=== PATIENT | male | born 1970 | race Caucasian/White ===

== ENCOUNTER 2018-11-10 17:37 | Observation (INO) ==
--- NOTE | 2018-11-10 18:22 | Emergency Department Note ---
Disposition Clinical Impression: Acute kidney injury, Dehydration Disposition: Admitted As Inpatient Condition: Fair Referrals: NONE,PCP [Primary Care Provider] - Forms: ED Satisfaction Letter, Work/School Release Time of Disposition: 19:16 General Adult HPI - General Chief complaint: ED General Medical Stated complaint: abnormal lab results Time Seen by Provider: 11/10/18 17:54 Source: patient Mode of arrival: private vehicle Limitations: no limitations Nursing Notes Reviewed: Yes Vital Signs Reviewed: Yes - History of Present Illness HPI Narrative: Patient was sent to the emergency department after having some routine lab work done by his PCP. That work was done yesterday and he was called today with abnormal results and told to be evaluated in the ER. Patient says that he was told his white count was abnormal and that his kidneys were close to failing. Patient had been seen for earaches and head congestion, however denies having been sick otherwise in the past week. He has had no nausea or vomiting or diarrhea. He says is been eating and drinking okay. He denies fevers or chills. Pt Subjective Complaint: Abnormal blood work Onset (ago): hour(s) Pain Scale: 0 - Related Data Home Medications Medication Instructions Recorded Confirmed Lisinopril [Zestril] 20 mg PO DAILY 01/29/17 11/10/18 Quetiapine Fumarate [Seroquel Xr] 400 mg PO HS 01/29/17 11/10/18 Amoxicillin/Clavulanate [Augmentin] 500 mg PO 11/10/18 Capmist Dm Tablet 1 PO DAILY 11/10/18 Previous Rx's Medication Instructions Recorded HYDROcodone/Acet 5/325 mg [[place] 1 tab PO Q6H PRN #14 tab 01/29/17 5-325 mg] Allergies Allergy/AdvReac Type Severity Reaction Status Date / Time Sulfa (Sulfonamide Allergy Rash Verified 01/29/17 15:39 Antibiotics) All systems ED: reviewed and negative except as stated. Constitutional: Denies: fever, chills ENT ED: Reports: ear pain, congestion. Denies: throat pain Cardiovascular: Denies: chest pain, palpitations Respiratory: Denies: cough, dyspnea, wheezes Gastrointestinal: Denies: abdominal pain, nausea, vomiting, diarrhea Genitourinary: Denies: urgency, dysuria, frequency, hematuria Musculoskeletal: Denies: back pain, neck pain Integumentary: Denies: rash Neurological: Denies: headache, weakness, numbness Past Medical History - Past Medical History Attestation: Yes The following information was validated with the patient. Source: patient, old records reviewed, nursing notes reviewed Medical history: Reports: hypertension Surgical history: Reports: non-contributory Psychiatric history: Reports: anxiety, depression - Social History Smoking Status: Current every day smoker Smokeless Tobacco Status: No Alcohol use: Reports: heavy Drug use: Reports: none Physical Exam - General Limitations: no limitations General appearance: alert, in no apparent distress - Head Head exam: normocephalic, normal inspection, other (Patient has a recent cut to the forehead that healing.) - Eye Eye exam: Present: normal appearance, PERRL, EOMI. Absent: scleral icterus, conjunctival injection - ENT ENT exam: normal exam, normal oropharynx, mucous membranes moist, TM's normal bilaterally, normal external ear exam - Neck Neck exam: Present: normal inspection, full ROM, trachea midline. Absent: meningismus - Chest Chest inspection: Present: normal inspection, symmetric chest wall rise. Abs ent: tenderness - Respiratory Respiratory exam: Present: normal lung sounds bilaterally. Absent: respiratory distress, wheezes - Cardiovascular Cardiovascular exam: Present: normal rhythm, tachycardia, normal heart sounds - Abdominal Exam Abdominal exam: Present: soft, Non-Tender, normal bowel sounds - Extremities Exam Extremities exam: Present: normal inspection. Absent: pedal edema - Neurological Exam Neurological exam: Present: alert, oriented X3 - Psychiatric Psychiatric exam: Present: normal affect, normal mood - Skin Skin exam: Present: warm, dry. Absent: rash Course Course Narrative: Patient was sent to the emergency department for abnormal labs. He does not really describe any significant illness. He has had some upper respiratory infection symptoms but he insists that the labs were just done as part of a normal workup. I got the lab results from [facility] and it shows a white count of 18,000 and a BUN of 58 with a creatinine of 3.3. I know what the patient's b aseline creatinine is but coupling this with tachycardia and hypotension that he is showing makes me think that this is acute and consistent with dehydration. I am going to recheck labs and add a few extra labs. I am going to give him some fluids. Disposition will be based on diagnostic results and reevaluation. - Reevaluation(s) Reevaluation #1: White count is only 12,000. Patient does not describe any blatant severe infectious disease symptoms. However we do see a BUN almost 60 and a creatinine of almost 4. I do not know what his baseline be a creatinine are but it seems consistent with acute kidney injury secondary to dehydration. He needs to be admitted to the hospital to make sure this corrects with hydration. I spoke with Dr. Rachel, the hospitalist and he accepted the patient for admission. Time: 19:15 Vital Signs Temperature 97.8 F 11/10/18 17:41 Pulse Rate 99 11/10/18 17:41 Respiratory Rate 18 11/10/18 17:41 Blood Pressure 89/55 11/10/18 17:41 O2 Sat by Pulse Oximetry 98 11/10/18 17:41 Temperature 97.8 F 11/10/18 18:11 Pulse Rate 89 11/10/18 18:44 Respiratory Rate 16 11/10/18 18:44 Blood Pressure 88/68 11/10/18 18:44 O2 Sat by Pulse Oximetry 100 11/10/18 18:44 Oxygen Delivery Oxygen Delivery Room Air Medical Decision Making - Lab Data Lab results reviewed: Yes I reviewed the patient's lab results. Result diagrams: 11/10/18 18:32 11/10/18 18:32 Lab Results 11/10/18 11/10/18 11/10/18 Range/Units 18:32 18:32 18:32 WBC 12.9 H (4.3-11.1) K/mcL RBC 2.86 L (4.19-5.50) M/mcL Hgb 10.9 L (12.9-16.9) g/dL Hct 30.0 L (37.5-50.1) % MCV 104.9 H (83.0-100.0) fL MCH 38.1 H (28.0-33.3) pg MCHC 36.3 H (31.6-35.5) g/dL RDW 13.2 (11.5-14.5) % Plt Count 134 L (140-400) K/mcL MPV 10.2 (9.4-12.4) fL Immature Gran % 3.3 (0-4) % Seg Neutrophils % 70.2 % Lymphocytes % 14.9 % Monocytes % 9.6 % Eosinophils % 1.6 % Basophils % 0.4 % Neutrophils # 9.1 H (1.6-8.9) K/mcL Lymphocytes # 1.9 (0.6-4.6) K/mcL Monocytes # 1.2 (0.0-1.3) K/mcL Eosinophils # 0.2 (0.0-0.6) K/mcL Basophils # 0.1 (0.0-0.2) K/mcL Sodium 132 L (136-145) mEq/L Potassium 3.7 (3.5-5.1) mEq/L Chloride 96 L (98-107) mEq/L Carbon Dioxide 17 L (23-29) mEq/L BUN 58 H (6-20) mg/dL Creatinine 3.99 H (0.70-1.30) mg/dL Est GFR ( Amer) 19 L (> 60) Est GFR (Non-Af Amer) 16 L (> 60) BUN/Creatinine Ratio 15 (6-26) Glucose 129 H (70-105) mg/dL Calculated Osmolality 292 (280-300) Lactic Acid 1.3 (0.5-2.2) mmol/L Calcium 9.2 (8.6-10.3) mg/dL Total Bilirubin 0.5 (0.3-1.0) mg/dL Direct Bilirubin 0.2 (0.0-0.2) mg/dL Indirect Bilirubin 0.3 (0.0-1.2) mg/dL AST 36 (13-39) Units/L ALT 21 (7-52) Units/L Alkaline Phosphatase 87 (34-104) Units/L Troponin I < 0.03 (< 0.04) ng/mL Serum Total Protein 7.5 (6.4-8.9) g/dL Albumin 4.2 (3.5-5.7) g/dL Globulin 3.3 (2.4-3.5) g/dL Albumin/Globulin Ratio 1.3 (1.1-2.2) Ethyl Alcohol < 10 (Less than 10) mg/dL - Radiology Data Radiology results reviewed: Yes I reviewed the patient's radiology results.
[2018-11-10] MEDS: 0.9 % Sodium Chloride 1,000 ML IVC SCH ×3 (18:36→21:04)
[2018-11-10 18:39] LABS: Basophils # 0.1 K/mcL (0.0-0.2); Basophils % 0.4 %; Eosinophils # 0.2 K/mcL (0.0-0.6); Eosinophils % 1.6 %; Hemoglobin 10.9 g/dL (12.9-16.9); Immature Granulocytes % 3.3 % (0-4); Lymphocytes # 1.9 K/mcL (0.6-4.6); Lymphocytes % 14.9 %; Mean Corpuscular HGB Conc 36.3 g/dL (31.6-35.5); Mean Corpuscular Hemoglobin 38.1 pg (28.0-33.3); Mean Corpuscular Volume 104.9 fL (83.0-100.0); Mean Platelet Volume 10.2 fL (9.4-12.4); Monocytes # 1.2 K/mcL (0.0-1.3); Monocytes % 9.6 %; Platelet Count 134 K/mcL (140-400); Red Blood Count 2.86 M/mcL (4.19-5.50); Red Cell Distribution Width 13.2 % (11.5-14.5); Segmented Neutrophils % 70.2 %
[2018-11-10 18:40] LABS: Neutrophils # 9.1 K/mcL (1.6-8.9)
[2018-11-10 18:58] LABS: Alanine Aminotransferase 21 Units/L (7-52); Albumin 4.2 g/dL (3.5-5.7); Albumin/Globulin Ratio 1.3 (1.1-2.2); Alkaline Phosphatase 87 Units/L (34-104); Aspartate Amino Transferase 36 Units/L (13-39); BUN/Creatinine Ratio 15 (6-26); Bilirubin,Direct 0.2 mg/dL (0.0-0.2); Bilirubin,Indirect 0.3 mg/dL (0.0-1.2); Bilirubin,Total 0.5 mg/dL (0.3-1.0); Blood Urea Nitrogen 58 mg/dL (6-20); Calcium 9.2 mg/dL (8.6-10.3); Carbon Dioxide 17 mEq/L (23-29); Chloride 96 mEq/L (98-107); Ethanol < 10 mg/dL (Less than 10); Globulin 3.3 g/dL (2.4-3.5); Glucose 129 mg/dL (70-105); Osmolality,Calculated 292 (280-300); Potassium 3.7 mEq/L (3.5-5.1); Sodium 132 mEq/L (136-145); Total Protein 7.5 g/dL (6.4-8.9); Troponin I < 0.03 ng/mL (< 0.04); eGFR For Non-African Americans 16 (> 60)
[2018-11-10] MEDS ORDERED: 0.9 % Sodium Chloride 1,000 ML ONE (19:30)
[2018-11-10 20:17] LABS: Bilirubin,Urine Negative (Negative); Blood,Urine Trace-lysed (Negative); Clarity,Urine Clear (Clear); Color,Urine Yellow (Yellow); Glucose,Urine (UA) 100 mg/dL (Normal); Ketones,Urine Negative (Negative); Leukocyte Esterase,Urine Trace (Negative); Nitrite,Urine Negative (Negative); PH,Urine 5.5 pH Units (5.0-8.0); Protein,Urine 30 mg/dL (Neg-Trace); Urobilinogen,Urine Normal (Normal)
[2018-11-10 20:28] LABS: Amphetamine Screen,Urine Negative ng/mL (Cutoff=1000); Barbiturate Screen,Urine Negative ng/mL (Cutoff=200); Benzodiazepines Screen,Urine Negative ng/mL (Cutoff=200); Cannabinoid Screen,Urine Negative ng/mL (Cutoff = 50); Cocaine Screen,Urine Negative ng/mL (Cutoff= 300); Opiate Screen,Urine Negative ng/mL (Cutoff=300); Phencyclidine Screen,Urine Negative ng/mL (Cutoff=25)
[2018-11-10 20:31] LABS: RBC,Urine 0-3 per hpf (0-3); Squamous Epithelial Cell,Urine Few per lpf (None-Few); WBC,Urine 0-3 per hpf (0-3)
[2018-11-10 20:32] LABS: Bacteria,Urine Few per hpf (None-Few); Granular Casts,Urine Few per lpf (None Seen); Hyaline Casts,Urine Few per lpf (None-Few)
[2018-11-10] MEDS ORDERED: 0.9 % Sodium Chloride 1,000 ML IV ONE (20:45)
[2018-11-10] MEDS ORDERED: Naloxone 0.4 MG/ML INJ IVP PRN (20:45)
[2018-11-10] MEDS ORDERED: Ondansetron 4 MG/2 ML VIAL IVP PRN (20:45)
[2018-11-10] MEDS: Amoxicillin 250 MG CHEWABLE TABLET PO SCH (21:42)
[2018-11-11] MEDS: 0.9 % Sodium Chloride 1,000 ML IVC SCH (03:44)
[2018-11-11 07:15] LABS: Hematocrit 28.7 % (37.5-50.1); Hemoglobin 10.2 g/dL (12.9-16.9); Mean Corpuscular HGB Conc 35.5 g/dL (31.6-35.5); Mean Corpuscular Hemoglobin 37.5 pg (28.0-33.3); Mean Corpuscular Volume 105.5 fL (83.0-100.0); Mean Platelet Volume 10.2 fL (9.4-12.4); Platelet Count 127 K/mcL (140-400); Red Blood Count 2.72 M/mcL (4.19-5.50); Red Cell Distribution Width 13.2 % (11.5-14.5)
[2018-11-11 07:31] LABS: Calcium 8.2 mg/dL (8.6-10.3); Potassium 3.4 mEq/L (3.5-5.1)
[2018-11-11] MEDS: Amoxicillin 250 MG CHEWABLE TABLET PO SCH ×2 (09:38→20:34)
--- NOTE | 2018-11-11 11:29 | Internal Med History&Physical ---
Date of Encounter: 11/11/18 Time of Encounter: 10:55 Assessment and Plan (1) Acute kidney injury Current visit: Yes Status: Acute Duration unknown since labs have not been checked in previous 5 years. IV fluids have been started. BUN and creatinine have decreased to 52 and 2.70 respectively today. Recheck labs in a.m. (2) Leukocytosis Current visit: Yes Status: Acute WBC normal today at 10.2 with no left shift. Etiology uncertain. Chest x-ray and urinalysis unremarkable. Will continue amoxicillin at this time and add lactobacillus. Qualifiers: Leukocytosis type: unspecified Qualified Code(s): D72.829 - Elevated white blood cell count, unspecified (3) Macrocytic anemia Current visit: Yes Status: Acute TSH and anemia testing will be done in a.m. He states he drinks 3-4 times per week with 4-5 drinks each episode. (4) Hypocalcemia Current visit: Yes Status: Acute Calcium level 8.2 with albumin normal at 4.2. Recheck in a.m. (5) Hypokalemia Current visit: Yes Status: Acute Potassium has decreased to 3.4. Supplement potassium will be given an labs rechecked in a.m. Internal Medicine - H&P: HPI Chief complaint: Lab abnormalities Admitted From: Emergency Dept Plans for Post Hospital Care: Home History of present illness: Mr. Mcclure is a 48 year old male who was told to come to emergency room after receiving a call from his PCP office reporting he has significant lab abnormali ties on blood work drawn 11/09/2018. He had leukocytosis, anemia, and renal failure reported. He was evaluated in emergency room and lab abnormalities were confirmed. He was admitted to [facility] floor for ongoing care needs. He reports he has not had blood work done for approximately 5 years. He denies known renal disease. He had kidney stones remotely without recurrence. He denies other kidney bladder or prostate disorders. He has had URI symptoms onset 11/06/2018 and received amoxicillin his PCP office 11/09/2018 for hoarseness and cough productive of yellow sputum. He denies vomiting or diarrhea but does report feeling fevered occasionally. Past Med Surg Social Fam HX - Past Medical History Medical history: hypertension Psychiatric history: anxiety, depression - Past Surgical History Surgical History: non-contributory, orthopedic, other Additional surgical history: Left Ankle - Social History Smoking Status: Current every day smoker Packs per day: 1-2 Smokeless Tobacco Status: No Alcohol use: heavy Drug use: none - Family History Mother Adopted: Yes Internal Medicine - H&P: Meds HYDROcodone/Acet 5/325 mg [[place] 5-325 mg] 1 tab PO Q6H PRN #14 tab 01/29/17 [Rx] Lisinopril [Zestril] 20 mg PO DAILY 01/29/17 [History] Quetiapine Fumarate [Seroquel Xr] 400 mg PO HS 01/29/17 [History] Amoxicillin/Clavulanate [Augmentin] 500 mg PO 11/10/18 [History] Capmist Dm Tablet 1 PO DAILY 11/10/18 [History] Allergy/AdvReac Type Severity Reaction Status Date / Time Sulfa (Sulfonamide Allergy Rash Verified 01/29/17 15:39 Antibiotics) All Systems PM: A 10-system review of systems was performed and is negative for pertinent findings except as documented above in the HPI. Review of systems: Gen.: He states his weight has decreased approximately 10 pounds in the past month, unintentionally Cardiovascular: He has history of hypertension but denies AL heart failure angina DVT or pulmonary embolus. He reports he has been taking lisinopril daily for approximately 2-3 weeks. Prior to that he was using it only sporadically in the 2 years since it was prescribed. Respiratory: He has smoked since age 14 up to 2 packs per day. He has not had PFTs and does not use home oxygen. He denies testing for DARNELL. GI: He denies disorders of his liver gallbladder or exocrine pancreas : As per history of present illness Neurologic: He denies large's tradition strokes or seizures. Endocrine: He denies diabetes thyroid disease or hyperlipidemia Hematology/oncology: He was unaware he had anemia on labs this week. He denies history of anemia or internal malignancies. Psychiatric: He has been diagnosed with depression and anxiety. He denies other mental health diagnosis. [place] skeletal: He had left ankle fracture with plate and screw repair and tendon repair several years ago. He denies arthritis gout or other bone joint or muscle disorders. - Constitutional Vitals: Temp Pulse Resp BP Pulse Ox 98.4 F 80 16 106/70 94 11/11/18 06:00 11/11/18 06:00 11/11/18 06:00 11/11/18 06:00 11/11/18 06:00 Exam: Gen.: He is a well-developed well-nourished male lying in bed who appears in no severe distress at present time HEENT: Head is atraumatic and normocephalic. Eyes: EOMI. There is no scleral icterus. Mouth: Mucosa is moist. Neck: Supple and nontender. There is no thyromegaly or adenopathy noted. Heart: Regular without murmurs gallops or ectopics Lungs: No wheezes or crackles are heard. Abdomen: Soft and nontender. No masses or guarding are noted. Extremities: There is no cyanosis edema or clubbing noted. Dorsalis pedis and posttibial pulses are 1-2 over 2 bilaterally. Neurologic: Mental status: He is talkative and a good historian. Cranial nerves: Smile is symmetric. Forehead wrinkles bilaterally. Tongue protrudes midline. EOMI. Motor: There is no pronator drift. Cerebellar: Finger to nose is intact bilaterally. Skin: Warm and dry Internal Med - H&P Results - Labs CBC & Chem 7: 11/11/18 06:53 11/11/18 06:53 Labs: Short CBC 11/10/18 11/11/18 Range/Units 18:32 06:53 WBC 12.9 H 10.2 (4.3-11.1) K/mcL Hgb 10.9 L 10.2 L (12.9-16.9) g/dL Hct 30.0 L 28.7 L (37.5-50.1) % Plt Count 134 L 127 L (140-400) K/mcL Neutrophils # 9.1 H (1.6-8.9) K/mcL BMP 11/10/18 11/11/18 18:32 06:53 Sodium 132 L 138 Potassium 3.7 3.4 L Chloride 96 L 105 Carbon Dioxide 17 L 20 L BUN 58 H 52 H Creatinine 3.99 H 2.70 H Glucose 129 H 126 H Calcium 9.2 8.2 L Cardiac Enzymes 11/10/18 Range/Units 18:32 Troponin I < 0.03 (< 0.04) ng/mL Liver Function 11/10/18 Range/Units 18:32 Total Bilirubin 0.5 (0.3-1.0) mg/dL Direct Bilirubin 0.2 (0.0-0.2) mg/dL AST 36 (13-39) Units/L ALT 21 (7-52) Units/L Alkaline Phosphatase 87 (34-104) Units/L Albumin 4.2 (3.5-5.7) g/dL Urine 11/10/18 Range/Units 20:13 Urine Color Yellow (Yellow) Urine Clarity Clear (Clear) Urine pH 5.5 (5.0-8.0) pH Units Ur Specific [place] 1.010 (1.010-1.025) Urine Protein 30 H (Neg-Trace) mg/dL Urine Glucose (UA) 100 H (Normal) mg/dL - Impressions ITS Impressions Chest X-Ray 11/10/18 18:14 IMPRESSION: Left basilar atelectasis. D/ / Carlyn Davis MD / Carlyn Davis MD Interpreting Provider: Carlyn Davis MD
[2018-11-11] MEDS: Nicotine 21 MG PATCH.TD24 TD SCH (13:06)
[2018-11-11] MEDS: 0.45 % Sodium Chloride w/KCl 20 MEQ/1,000 ML MLS IVC SCH ×2 (13:06→23:21)
[2018-11-11] MEDS: Lactobacillus 1 EACH CAP.SPRINK PO SCH (20:34)
[2018-11-12 06:42] LABS: Basophils # 0.1 K/mcL (0.0-0.2); Basophils % 0.7 %; Eosinophils # 0.4 K/mcL (0.0-0.6); Hematocrit 29.8 % (37.5-50.1); Hemoglobin 10.5 g/dL (12.9-16.9); Immature Granulocytes % 4.3 % (0-4); Lymphocytes # 3.1 K/mcL (0.6-4.6); Mean Corpuscular HGB Conc 35.2 g/dL (31.6-35.5); Mean Corpuscular Hemoglobin 37.2 pg (28.0-33.3); Mean Corpuscular Volume 105.7 fL (83.0-100.0); Monocytes # 1.8 K/mcL (0.0-1.3); Monocytes % 15.4 %; Neutrophils # 5.7 K/mcL (1.6-8.9); Platelet Count 141 K/mcL (140-400); Red Blood Count 2.82 M/mcL (4.19-5.50); Red Cell Distribution Width 13.2 % (11.5-14.5); Segmented Neutrophils % 49.6 %
[2018-11-12 06:59] LABS: Magnesium 1.2 mg/dL (1.6-2.6)
[2018-11-12 07:03] LABS: Albumin 3.9 g/dL (3.5-5.7); Albumin/Globulin Ratio 1.3 (1.1-2.2); Bilirubin,Total 0.4 mg/dL (0.3-1.0); Calcium 8.4 mg/dL (8.6-10.3); Potassium 3.6 mEq/L (3.5-5.1); Total Protein 6.9 g/dL (6.4-8.9)
[2018-11-12 07:04] VITALS: BP 127/89
[2018-11-12] MEDS: Lactobacillus 1 EACH CAP.SPRINK PO SCH (07:57)
[2018-11-12] MEDS: Nicotine 21 MG PATCH.TD24 TD SCH (07:57)
[2018-11-12] MEDS: Amoxicillin 250 MG CHEWABLE TABLET PO SCH (07:57)
[2018-11-12 08:48] LABS: Thyroid Stimulating Hormone 3.163 mcIU/mL (0.340-5.600)
[2018-11-12 10:14] LABS: Folate 6.5 ng/mL (3.0-16.0)
--- NOTE | 2018-11-12 11:03 | Discharge Summary ---
Orders not resulted at time of discharge: Pending orders 11/10/18 18:32 Culture,Blood [BC] Stat 11/10/18 20:13 Culture,Urine [RM] Stat Date of Encounter: 11/12/18 Time of Encounter: 10:50 - Discharge Diagnosis (1) Acute kidney injury Priority: Primary Status: Acute (2) Leukocytosis Priority: Secondary Status: Acute Qualifiers: Leukocytosis type: unspecified Qualified Code(s): D72.829 - Elevated white blood cell count, unspecified (3) Macrocytic anemia Priority: Secondary Status: Acute (4) Hypocalcemia Priority: Secondary Status: Acute (5) Hypokalemia Priority: Secondary Status: Resolved (6) Hypomagnesemia Priority: Secondary Status: Acute Hospital course: Mr. Mcclure is a 48 year old male who was told to come to emergency room after receiving a call from his PCP office reporting he has significant lab abnormalities on blood work drawn 11/09/2018. He had leukocytosis, anemia, and renal failure reported. He was evaluated in emergency room and lab abnormalities were confirmed. He was admitted to [facility] for ongoing care needs. Initial orders were written by the emergency room physician. I saw him on November 11 and performed the history and physical. He was started on IV fluids. Lisinopril was discontinued. Blood pressure was borderline low on admission but returned to satisfactory range. BUN and creatinine decreased to 37 and 1.72 respectively by day of discharge with estimated GFR 42. I told the patient I anticipate further improvement in renal indices. His PCP can monitor labs. Anemia testing showed iron 55, transferrin saturation 16%, transferrin 240, ferritin 635, B12 336, and folate 6.5. Hemoglobin was stable at 10.5 on day of discharge. His PCP can continue to monitor. Macrocytosis workup showed TSH normal at 3.163. LFTs remained normal. B12 and folate levels were normal as per above. I encouraged him to discontinue alcohol use. His PCP can monitor macrocytosis and referred to hematology/oncology as needed. His calcium level improved to 8.4 on day of discharge. His PCP can continue to monitor. Supple potassium was given and hypokalemia resolved by day of discharge. Magnesium level returned low at 1.2. He will be given magnesium oxide 400 mg twice a day for 1 week. His PCP can follow up on this. On November 12 he felt improved and stable for discharge home. He will follow with his PCP Leesa Figueredo CNP within 1 week. He will remain off lisinopril. - Time Spent with Patient Total time spent providing and/or coordinating discharge services: - Discharge Medications Prescriptions: New Magnesium Oxide 400 mg PO BID #14 tablet Continue Quetiapine Fumarate [Seroquel Xr] 400 mg PO HS HYDROcodone/Acet 5/325 mg [[place] 5-325 mg] 1 tab PO Q6H PRN #14 tab PRN Reason: Pain Capmist Dm Tablet 1 PO DAILY Amoxicillin/Clavulanate [Augmentin] 500 mg PO Discontinued Lisinopril [Zestril] 20 mg PO DAILY Home Medications: HYDROcodone/Acet 5/325 mg [[place] 5-325 mg] 1 tab PO Q6H PRN #14 tab 01/29/17 [Rx] Quetiapine Fumarate [Seroquel Xr] 400 mg PO HS 01/29/17 [History] Amoxicillin/Clavulanate [Augmentin] 500 mg PO 11/10/18 [History] Capmist Dm Tablet 1 PO DAILY 11/10/18 [History] Magnesium Oxide 400 mg PO BID #14 tablet 11/12/18 [Rx] Allergies/Adverse Reactions: Allergy/AdvReac Type Severity Reaction Status Date / Time Sulfa (Sulfonamide Allergy Rash Verified 01/29/17 15:39 Antibiotics) Date of admission: 11/10/18 19:33 Primary care physician: Leesa Figueredo CNP - Constitutional Vitals: Temp Pulse Resp BP Pulse Ox 98.5 F 81 16 127/89 97 11/12/18 07:03 11/12/18 07:03 11/12/18 07:03 11/12/18 07:03 11/12/18 07:03 - Patient Status Disposition: Home, Self-Care Condition: Fair - Discharge Instructions Follow Up With: Leesa Figueredo CNP [Advanced Practice Nurse] - 1 week - Diet and Activity Activity: resume usual activities as tolerated Diet: advance to your usual diet
== END 2018-11-12 11:42 | disposition home or self-care (01) ==
LOC: INPPIK 17:37 → EMEROOPIK 17:37 → INPPIK 20:21
PROVIDERS: ADMIT Internal Medicine; ATTEND Internal Medicine